=== PATIENT | male | born 1980 | race Caucasian/White ===

== ENCOUNTER → 2017-06-04 | Outpatient (CLI) | payer OTHER ==
--- NOTE | 2017-06-04 09:46 | DIAGNOSTIC IMAGING REPORT ---
R SHOULDER MIN 2 VIEWS ROUTINE HISTORY: 37 years-old Male M25.519 acute right shoulder pain COMPARISON: None available TECHNIQUE: 3 views of the right shoulder FINDINGS: No acute fracture, dislocation or significant degenerative changes. Imaged lung sandra appear clear. No opaque foreign body. IMPRESSION: No acute fracture or dislocation. The above report was generated using voice recognition software. It may contain grammatical, syntax or spelling errors. Electronically signed by: Jacky Woodward M.D. 06/04/2017 9:45 AM Dictated Date/Time: 06/04/2017 9:44 AM
== END | disposition home or self-care (01) ==
LOC: C.RAD1850 09:36
PROVIDERS: ATTEND Family Medicine
DX: M25.511 Pain in right shoulder (principal)